=== PATIENT | male | born 1960 | race African-American/Black ===

== ENCOUNTER 2019-01-13 14:24 | Emergency (ER) | payer BC ==
[2019-01-13] MEDS ORDERED: ASPIRIN 325 MG TABLET PO ONE (14:36)
--- NOTE | 2019-01-13 14:36 | PDOC ---
History of Present Illness - General Chief Complaint: Nausea/Vomiting Stated Complaint: VOMITING, EKG CHANGES Time Seen by Provider: 01/13/19 14:34 - History of Present Illness Initial Comments: Aman Galarza is a 58yo man with a PMH of poorly controlled diabetes (A1C 12.7 ) and hypertension who was sent to the ED from his PMD's office with a new ST elevation on his EKG today. Mr Galarza reports that he started experiencing nausea with dry heaving, substernal chest pressure, palpitations and dyspnea last night after dinner. He took 2 baby aspirin and went to bed. He felt better this morning and went to work. He states that around 10am he started having the same symptoms. He felt substernal chest pressure again with associated nausea, several episodes of NBNB vomiting, and lightheadedness. He came directly to his PMD's office for evaluation, arriving around noon. He states that his symptoms lasted until around 12:30 or 1pm today. He had an EKG completed showing an ST elevation in V2 that was not seen on previous EKG from 2016. He was sent directly to the ED for additional evaluation. Mr Galarza states that he feels his symptoms are from high blood sugar. He has never had chest pressure before, but he feels that his nausea and lightheadedness is from hyperglycemia. Past History - Past Medical History Allergies/Adverse Reactions: Allergies Allergy/AdvReac Type Severity Reaction Status Date / Time No Known Allergies Allergy Verified 01/13/19 14:50 Home Medications: Ambulatory Orders Cholecalciferol (Vitamin D3) [Vitamin D3] 3,000 unit PO DAILY tablet 04/21/16 Insulin Glargine,Hum.rec.anlog [Olivier Hagen] 26 unit SQ HS 01/13/19 Metformin HCl [Metformin HCl ER] 500 mg PO BID 01/13/19 Anemia: No Asthma: No Cancer: No Cardiac Disorders: No CVA: No COPD: No CHF: No Dementia: No Diabetes: Yes (TYPE II) GI Disorders: No Disorders: Yes (UTI, BPH) HTN: Yes Hypercholesterolemia: No Liver Disease: No Seizures: No Thyroid Disease: No - Surgical History Appendectomy: Yes - Suicide/Smoking/Psychosocial Hx Smoking History: Never smoked Hx Alcohol Use: No Drug/Substance Use Hx: No Review of Systems - Review of Systems Comments:: General: No fevers, no chills, no weight or appetite change, no malaise, + Sweating HEENT: No changes in vision, no changes in hearing, no congestion, no sore throat CV: + chest pain, + palpitations, no LE edema Pulm: + SOB, no cough, no wheezing GI: +nausea/vomiting, no change in bowel habits, no melena : No frequency, no urgency, no dysuria Musc: No back pain, no joint swelling, no recent injury Skin: No rash, no lesions, no erythema Endo: No excessive thirst, no heat/cold intolerance Heme: No unusual bruising or bleeding, no swollen glands Neuro: No syncope, no numbness/tingling, no focal weakness Vasc: No claudication Psych: No recent change in mood, no SI or HI *Physical Exam - Physical Exam Comments: General: Comfortable, no acute distress HEENT: PERRL, EOMI, MMM, voice normal, normal neck ROM Cards: RRR, no murmur appreciated Pulm: Comfortable on room air, clear to auscultation bilaterally Abd: Soft, nontender, nondistended Ext: Atraumatic. No LE edema. ROM intact Vasc: Extremities WWP Skin: Normal color, no rashes or lesions Neuro: A&Ox3, CN grossly intact, normal speech, motor/sensory grossly intact and symmetric Psych: Mood appropriate to situation Medical Decision Making - Medical Decision Making 01/13/19 14:57 Aman Galarza is a 58yo man with a PMH of poorly controlled diabetes (A1C 12.7 ) and hypertension who was sent to the ED from his PMD's office with a new V2 ST elevation on his EKG today along with substernal chest pain, nausea, vomiting , SOB, and lightheadedness. - EKG from clinic reviewed. 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 Holly Sutherland PGY2 *DC/Admit/Observation/Transfer Diagnosis at time of Disposition: ST elevation (STEMI) myocardial infarction Qualifiers: Involved coronary artery: unspecified coronary artery Qualified Code(s): I21.3 - ST elevation (STEMI) myocardial infarction of unspecified site - Discharge Dispostion Disposition: TRANSFER ACUTE CARE/OTHER HOSP Condition at time of disposition: Critical - Referrals - Patient Instructions - Post Discharge Activity - Transfer to Acute Care Facility Receiving Facility: [facility] Accepting Physician:: Dr Tony
[2019-01-13] MEDS ORDERED: CLOPIDOGREL BISULFATE 300 MG TABLET PO ONE (14:54)
[2019-01-13 14:57] VITALS: TEMP 98.2; BMI 30.2
[2019-01-13] MEDS ORDERED: CLOPIDOGREL BISULFATE 300 MG TABLET ONE (14:58)
[2019-01-13] MEDS ORDERED: ASPIRIN 325 MG TABLET ONE (14:59)
--- NOTE | 2019-01-13 15:09 | PDOC ---
Attending Attestation - Resident Resident Name: RickgayHolly - ED Attending Attestation I have performed the following: I have examined & evaluated the patient, The case was reviewed & discussed with the resident, I agree w/resident's findings & plan, Exceptions are as noted - HPI HPI: 01/13/19 15:02 58 yo male h/o HTN DM here with c/o substernal chest pressure. pt states has had two episodes last evening began. happened at rest. did feel lighteaded. lasted about one hour and resolved. this am had recurrent episode around 10 am, happened at rest. lasted 2 hrs pt went to see his Dr Taylor ( pcp dr madrid ) who did ekg in the office, noted EKG changes. pt describes substernal chest pressure , no radiation, assocated sob and feeling lightheaded. did have nausea and vomited x 1. no f/c no cough. no leg swelling. no family h/o cad. no prior cardiac workup. no h/o similar pain in the past prior to last evening. - Physicial Exam PE: 01/13/19 15:05 awake alert lungs clear bilat heart rrr no mrg abd soft nt nd no pulsatile mass. ext wwp. no edema. no calf tenderness. skin warm and dry. nuero alert oriented x 3. pulses symmetric. - Medical Decision Making 01/13/19 15:09 58 yo male h/o DM HTN here with intermittent chest pain. ST changes V2/ v3. pt chest pain free on initial evaluation. d/w [facility] transfer [facility] for STEMI. pt borderline. had recurrent episode of chest pain in ED. repeat EKG with ST elevation V2 - V5. accepted by dr figueroa. given heparin bolus 5000, aspirin 325, plavix 600 mg. given ntg SLx 1 with recurrent pain. Heart Score/ECG Review #1 General ECG Interpretation: Sinus Rhythm, Normal Rate (92), No acute ischemic changes #2 ECG reviewed & interpreted by me at: 15:12 General ECG Interpretation: Sinus Rhythm, Normal Intervals, No acute ischemic changes Compared to previous ECG there are: Other (tachycardia 106. ST elevation, V2 - V5.)
[2019-01-13] MEDS ORDERED: HEPARIN NA (PORCINE) 5,000 UNITS/ML 1ML VIAL ONE (15:10)
[2019-01-13] MEDS ORDERED: NITROGLYCERIN SUBLINGUAL 1/150 0.4 MG TAB SL ONE (15:11)
[2019-01-13] MEDS ORDERED: HEPARIN NA (PORCINE) 5,000 UNITS/ML 1ML VIAL IVPUSH PRN (15:11)
[2019-01-13] MEDS ORDERED: NITROGLYCERIN SUBLINGUAL 1/150 0.4 MG TAB ONE ×2 (15:13)
[2019-01-13] MEDS ORDERED: ONDANSETRON 4 MG/2 ML VIAL IVPUSH ONE (15:21)
[2019-01-13] MEDS ORDERED: ONDANSETRON 4 MG/2 ML VIAL ONE (15:21)
[2019-01-13 15:35] VITALS: BP 160/88; PULSE 100
[2019-01-13 15:51] LABS: BASO % 0.2 % (0-2.0); EOS % 0.1 % (0-4.5); HEMATOCRIT 39.6 % (35.4-49); HEMOGLOBIN 13.3 GM/dl (11.7-16.9); LYMPH % 8.5 % (8-40); MCH 29.5 pg (25.7-33.7); MCHC 33.5 g/dl (32.0-35.9); MEAN CELL VOLUME 88.1 fl (80-96); MEAN PLT VOLUME 8.4 fl (7.5-11.1); MONO % 3.1 % (3.8-10.2); NEUT % 88.1 % (42.8-82.8); PLATELET COUNT 251 K/MM3 (134-434); RDW 12.3 % (11.9-15.9); WHITE BLOOD COUNT 7.1 K/mm3 (4.0-10.8)
[2019-01-13 15:55] LABS: INR 1.11 (0.82-1.09); PROTHROMBIN TIME (PATIENT) 12.4 SEC (10.2-13.0)
[2019-01-13 16:10] LABS: CREATININE 1.4 mg/dl (0.55-1.3); MAGNESIUM 1.6 mg/dL (1.8-2.4); POTASSIUM 4.6 mmol/L (3.5-5.1); TOT PROT 7.4 g/dl (6.4-8.2)
[2019-01-13 16:16] LABS: CHOLESTEROL 192 mg/dl (50-200); HDL CHOLESTEROL 47 mg/dl (40-60); LDL CHOLESTEROL (ONLY DFH) 132 mg/dl (5-100); TRIGLYCERIDES 65 mg/dl (0-150)
--- NOTE | 2019-01-14 09:38 | EKG ---
Test Reason : Blood Pressure : / mmHG Vent. Rate : 106 BPM Atrial Rate : 106 BPM P-R Int : 200 ms QRS Dur : 090 ms QT Int : 336 ms P-R-T Axes : 066 -10 071 degrees QTc Int : 446 ms SINUS TACHYCARDIA LOW VOLTAGE QRS CANNOT RULE OUT ANTEROSEPTAL INFARCT , AGE UNDETERMINED LATERAL INJURY PATTERN ACUTE [place] / STEMI ABNORMAL ECG NO PREVIOUS ECGS AVAILABLE Confirmed by Pavel Polk MD ([id number]) on 01/14/2019 9:38:29 AM Referred By: MD PRATER Confirmed By:Pavel Polk MD
== END 2019-01-13 15:42 | disposition short-term general hospital (02) ==
LOC: FER 14:24
PROC: 3E033GC Introduction of Other Therapeutic Substance into Peripheral Vein, Percutaneous Approach (ICD-10-PCS; principal; 2019-01-13)
DX: I21.3 ST elevation (STEMI) myocardial infarction of unspecified site (principal); E11.9 Type 2 diabetes mellitus without complications; I10 Essential (primary) hypertension
CPT/HCPCS: 36415; 71045-TC-FY; 80053; 80061; 82553; 83735; 84484; 85025; 85610; 93005; 99285-25; J1644